=== PATIENT | female | born 1935 | race Caucasian/White ===

== ENCOUNTER → 2016-10-12 | Outpatient (CLI) | payer MEDICARE ==
[~2016-10-12] MED LIST: AFRIN3 ML; ALBUTEROL17 GM INH; AMIODARONE PO; ARTIFICIAL TEAR15 M9; ASPIRIN PO; BUSPAR PO; COUMADIN PO; COUMADIN6 MG PO; CRESTOR5 MG PO; DARVOCET-N 1001 TA1 PO; DARVOCET-N 1001 TAB PO; FUROSEMIDE40 MG PO; GLUCOPHAGE500 M1 PO; LASIX PO; LISINOPRIL PO; LISINOPRIL20 MG PO; LOPRESSOR PO; LYRICA75 MG PO; METOPROLOL SUCC25 MG PO; MYLANTA DO150 ML SUS DOB; MYLANTA125 MG; NEURONTIN300 MG PO; NEXIUM PO; NIACIN100 MG PO; NORVASC PO; PREPARATION H; PRINIVIL40 MG PO; SALINE NOSE SPR45 M1; STOOL SOFTENER100 M1 PO; SYNTHROID PO; TOPROL XL PO; VITAMIN B 12; VITAMIN D400 UNI1 PO; ZOCOR PO
[2016-10-12 14:33] LABS: BASOPHIL# 0.1 X10e3 (0-0.3); BASOPHIL% 0.9 % (0-2.5); EOSINOPHIL# 0.1 X10e3 (0-0.7); EOSINOPHIL% 1.6 % (0.0-7.0); HEMATOCRIT 41.2 % (35.0-45.0); HEMOGLOBIN 13.6 gm/dL (12.0-16.0); LYMPHOCYTE# 1.6 X10e3 (1.0-3.5); LYMPHOCYTE% 18.6 % (17.0-45.0); MEAN CELL VOLUME 83.7 FL (83-96); MEAN CORPUSCULAR HEMOGLOBIN 27.6 PG (28-34); MEAN PLATELET VOLUME 8.5 FL (6.5-11.5); MONOCYTE# 0.8 X10e3 (0-1.0); MONOCYTE% 8.8 % (3.0-12.0); NEUTROPHIL# 6.2 X10e3 (1.5-7.1); NEUTROPHIL% 70.1 % (40-75); PLATELET COUNT 213 X10e3 (140-420); RED BLOOD COUNT 4.92 X10e (3.90-5.30); RED CELL DISTRIBUTION WIDTH 14.3 % (11.0-15.5); WHITE BLOOD COUNT 8.8 X10e3 (4.0-10.5)
[2016-10-12 14:51] LABS: DIFF IND NO
[2016-10-12 14:52] LABS: URINE APPEARANCE CLEAR; URINE BILIRUBIN NEG (NEG); URINE BLOOD NEG (NEG); URINE COLOR YELLOW; URINE GLUCOSE NEG (NORM); URINE KETONE NEG (NEG); URINE LEUKOCYTE ESTERASE 1+ (NEG); URINE NITRATE NEG (NEG); URINE PH 5.5 (5-8); URINE PROTEIN NEG (NEG); URINE SPECIFIC GRAVITY <=1.005 (1.003-1.035); URINE UROBILINOGEN 0.2 MG/DL (NORM)
[2016-10-12 14:54] LABS: BUN/CREATININE RATIO 20.71; CALCIUM SERUM 9.1 mg/dL (8.4-10.2); CREATININE SERUM 1.4 mg/dL (0.6-1.4); GLOM FILT RATE Estimated 38.6 mL/min (>60); POTASSIUM 4.2 mmol/L (3.5-5.1)
[2016-10-12 15:23] LABS: MICRO INDICATED? YES
[2016-10-12 15:51] LABS: URINE RBC NEG /[HPF] (0-2)
[2016-10-12 15:52] LABS: URINE BACTERIA NEG (NEG); URINE SQUAMOUS EPITHELIAL CELL FEW /[HPF]
[2016-10-12 23:00] LABS: CREATININE,RANDOM URINE 32 mg/dL; TOTAL PROTEIN,RANDOM URINE <10 mg/dl (<10)
== END | disposition home or self-care (01) ==
LOC: SLAB 14:12
PROVIDERS: Internal Medicine
DX: N18.3 Chronic kidney disease, stage 3 (moderate) (principal)
CPT/HCPCS: 36415; 80048; 81003; 82570; 84156; 85025

== ENCOUNTER → 2016-10-12 | Outpatient (CLI) | payer MEDICARE ==
--- NOTE | ~2016-10-12 | US37 ---
[facility] A Service of [facility] & [facility] [place] RADIOLOGY TEXT RESULTS PATIENT: WES REY LOCATION: SNIV : 37 UNIT #: [id number] AGE: [address]: Krysta Richards MD SEX: F ORDER DR: [id number] [address] [address] [id number] O MR#: [id number] Acc #: [id number] NAME: WES REY : 1935 SEX: F STUDY DATE/TIME: 10/12/2016 14:54 UNIT: SNIV ROOM: STUDY DESCRIPTION: US Carotid W/Doppler Bilateral Attending Physician: Kyrsta Richards M.D. Referring Physician: Krysta Richards M.D. Ordering Physician: Krysta Richards M.D. Primary Care Physician: Krysta Richards M.D. MEDICAL IMAGING REPORT This report is preliminary unless electronic signature is present. EXAM Bilateral carotid Doppler, 10/12/16 HISTORY Carotid stenosis FINDINGS The right common carotid, internal carotid and external carotid arteries are patent with mild plaque noted in the carotid bulb and internal carotid artery. Velocity of the common carotid artery is 110 cm/sec. Peak systolic velocity of the right proximal internal carotid artery is 96 cm/sec with an end diastolic velocity of 15 cm per second, for an ICA/CCA ratio of 0.87. External carotid artery had a velocity of 138 cm/sec. The vertebral artery is visualized with antegrade flow. The left common carotid, internal carotid and external carotid arteries are patent with mild plaque in the carotid bulb and internal carotid artery. Velocity of the common carotid artery is 106 cm/sec. Peak systolic velocity of the left proximal internal carotid artery is 106 cm/sec with an end diastolic velocity of 15 cm/sec with an ICA/CCA ratio of 1.0. External carotid had a velocity of 111 cm/sec. The vertebral artery is visualized with antegrade flow. IMPRESSION 1. Less than 50% stenosis of the right and left internal carotid arteries. 2. No stenosis of the external carotid arteries. 3. Antegrade flow of the vertebral arteries. [facility] A Service of [facility] & [facility] [place] RADIOLOGY TEXT RESULTS PATIENT: WES REY LOCATION: SNIV : 37 UNIT #: [id number] AGE: [address]: Krysta Richards MD SEX: F ORDER DR: Dictated by... Corry Mars M.D. THIS IS AN ELECTRONICALLY VERIFIED REPORT Corry Mars M.D. at 10/13/2016 10:42 PM FORTUNATO/margarette TD: 10/12/2016 22:13 JOB #: [id number] MEDICAL IMAGING REPORT
== END | disposition home or self-care (01) ==
LOC: SNIV 14:10
DX: I65.23 Occlusion and stenosis of bilateral carotid arteries (principal)
CPT/HCPCS: 93880